=== PATIENT | female | born 1980 | race Two or more races ===

== ENCOUNTER 2023-06-30 11:26 | Inpatient (IN) | payer MEDICAID, OTHER ==
[~2023-06-30] VITALS: Ht 160 cm; Wt 93.5 kg
[2023-06-30 12:36] LABS: Urine Bacteria MANY /hpf (None Seen); Urine Blood Negative /uL (Negative); Urine Clarity HAZY (Clear); Urine Color Yellow (Yellow); Urine Hyaline Cast FEW /lpf (0 - 2); Urine Protein, UAD TRACE (Negative); Urine Urobilinogen Normal (Negative); Urine WBC 26 /hpf (0 - 5); Urine pH 6.5 (5.0-8.0)
[2023-06-30 12:53] LABS: Basophils # (auto) 0 10 ^3/uL (0-0.2); Basophils % (auto) 0.3 % (0.0-2.0); Eosinophils # (auto) 0.1 10 ^3/uL (0-0.8); Eosinophils % (auto) 1.1 % (0.0-7.0); Hematocrit 43.2 % (36.0-46.0); Lymphocytes # (auto) 2.7 10 ^3/uL (0.4-5.4); Lymphocytes % (auto) 35.7 % (10.0-50.0); Mean Corpuscular Hemoglobin 28.2 pg (28.0-32.0); Mean Corpuscular Hgb Conc. 32.5 g/dL (32.0-36.0); Monocytes # (auto) 0.5 10 ^3/uL (0-1.3); Monocytes % (auto) 7.2 % (0.0-12.0); Neutrophils # (auto) 4.2 10 ^3/uL (1.6-8.6); Neutrophils % (auto) 55.7 % (37.0-80.0); Red Blood Cells 4.97 10^6/uL (4.0-5.20); Red Cell Distribution Width 13.9 % (11.8-14.3); White Blood Cell 7.5 10^3/uL (4.4-10.8)
[2023-06-30 13:07] LABS: Alanine Aminotransferase 75 U/L (7-40); Albumin 4.2 g/dL (3.2-4.8); Alkaline Phosphatase 98 U/L (46-116); Anion Gap 4 (5-15); Aspartate Aminotransferase 45 U/L (13-40); Bilirubin, Total 0.4 mg/dL (0.2-1.0); Carbon Dioxide 27 mmol/L (20-30); Chloride 106 mmol/L (98-107); Glucose 142 mg/dL (74-106); Lipase 30 U/L (12-53); Potassium 3.9 mmol/L (3.5-5.1); Sodium 137 mmol/L (136-145); Total Protein 7.1 g/dL (5.7-8.2)
[2023-06-30 13:15] LABS: BUN/Creatinine Ratio 8.2 (10.0-20.0); Blood Urea Nitrogen < 5 mg/dL (9-23)
[2023-06-30] MEDS: SODIUM CHLORIDE 0.9% 1,000 ML IV ONE (14:08)
[2023-06-30] MEDS: KETOROLAC TROMETH 30 MG/ML 1ML VIAL IV ONE (14:10)
[2023-06-30] MEDS: cefTRIAXone 1GM/50ML D5W 50 ML IV ONE (15:10)
[2023-06-30] MEDS: SODIUM CHLORIDE 0.9% 1,000 ML IV SCH (16:15)
[2023-06-30] MEDS ORDERED: MORPHINE SULFATE INJ 2 MG/ml SYRG IV PRN (16:15)
[2023-06-30] MEDS ORDERED: ONDANSETRON HCL 4 MG/2 ML VIAL IV PRN (16:15)
[2023-06-30] MEDS ORDERED: DOCUSATE SOD 100 MG CAP PO PRN (16:15)
[2023-06-30] MEDS: LORazepam 2MG/ML-1ML VIAL IV ONE (18:08)
[2023-06-30 19:23] VITALS: BP 116/73; PULSE 69; RESP 16; TEMP 96.3
[2023-06-30 20:00] VITALS: BP 119/57; PULSE 72; PULSE 79; RESP 16; TEMP 97.6; O2SAT 95
[2023-06-30] MEDS: metroNIDAZOLE 500MG/100ML 100 ML IV SCH (21:43)
[2023-06-30 22:00] VITALS: BP 105/68; PULSE 65; RESP 16; TEMP 98; O2SAT 96
[2023-07-01] VITALS (7 sets, daily range): BP systolic 103–114; BP diastolic 57–66; PULSE 61–82; RESP 14–16; TEMP 36.7; O2SAT 97–98
[2023-07-01 05:56] LABS: Basophils # (auto) 0 10 ^3/uL (0-0.2); Basophils % (auto) 0.3 % (0.0-2.0); Eosinophils # (auto) 0.1 10 ^3/uL (0-0.8); Eosinophils % (auto) 1.7 % (0.0-7.0); Hematocrit 39.8 % (36.0-46.0); Hemoglobin 13.4 g/dL (12.2-16.2); Lymphocytes # (auto) 2.7 10 ^3/uL (0.4-5.4); Mean Corpuscular Hemoglobin 28.8 pg (28.0-32.0); Mean Corpuscular Hgb Conc. 33.7 g/dL (32.0-36.0); Mean Corpuscular Volume 85.4 fL (80.0-100.0); Monocytes # (auto) 0.6 10 ^3/uL (0-1.3); Monocytes % (auto) 8.4 % (0.0-12.0); Neutrophils # (auto) 3.7 10 ^3/uL (1.6-8.6); Neutrophils % (auto) 51.6 % (37.0-80.0); Red Blood Cells 4.66 10^6/uL (4.0-5.20); Red Cell Distribution Width 13.9 % (11.8-14.3); White Blood Cell 7.1 10^3/uL (4.4-10.8)
[2023-07-01 06:14] LABS: Alanine Aminotransferase 78 U/L (7-40); Albumin 3.9 g/dL (3.2-4.8); Alkaline Phosphatase 86 U/L (46-116); Anion Gap 6 (5-15); Aspartate Aminotransferase 52 U/L (13-40); BUN/Creatinine Ratio 10.7 (10.0-20.0); Bilirubin, Total 0.5 mg/dL (0.2-1.0); Blood Urea Nitrogen 6 mg/dL (9-23); Calcium 8.7 mg/dL (8.7-10.4); Carbon Dioxide 25 mmol/L (20-30); Chloride 108 mmol/L (98-107); Glucose 103 mg/dL (74-106); Sodium 139 mmol/L (136-145); Total Protein 6.5 g/dL (5.7-8.2)
[2023-07-01] MEDS: levoFLOXacin 500MG 100 ML IV SCH (08:51)
[2023-07-01] MEDS ORDERED: HYDROcodone-ACET 5/325MG TAB PO PRN (15:45)
[2023-07-02 05:00] VITALS: BP 94/56; PULSE 57; RESP 16; TEMP 98.5; O2SAT 96
[2023-07-02 09:00] VITALS: BP 103/60; PULSE 65; RESP 20; TEMP 98.6; O2SAT 98
[2023-07-02 13:00] VITALS: BP 135/85; PULSE 59; RESP 20; TEMP 98.6; O2SAT 98
[2023-07-02 17:00] VITALS: BP 104/57; PULSE 57; RESP 18; TEMP 98.2; O2SAT 94
[2023-07-02 20:00] VITALS: BP 119/57; PULSE 60; PULSE 85; RESP 16; RESP 17; TEMP 97.6; O2SAT 96
[2023-07-03 08:53] VITALS: BP 91/52; PULSE 52; RESP 15; TEMP 98.9; O2SAT 100
[2023-07-03] MEDS ORDERED: NITR-52 PO (09:07)
[2023-07-03] MEDS ORDERED: METR-344 PO (09:07)
[2023-07-03 09:26] LABS: Hepatitis B Core Total AB Negative (Negative)
[2023-07-03] MEDS: cefTRIAXone 1GM/50ML D5W 50 ML IV SCH (10:25)
[2023-07-03 11:43] LABS: Hepatitis A Total Antibody Positive (Negative); Hepatitis B Surface Antibody Negative (Negative); Hepatitis B Surface Antigen Negative (Negative); Hepatitis C Antibody Negative (Negative)
[2023-07-03 12:52] VITALS: BP 106/65; PULSE 68; RESP 16; TEMP 97.8; O2SAT 96
== END 2023-07-03 13:30 | disposition home or self-care (01) | DRG 463 ==
LOC: ER 11:26 → OVERFLOW 16:17 → CENTRAL 18:52
PROVIDERS: ADMIT Nurse Practitioner Family; ATTEND Family Medicine
DX: N10 Acute pyelonephritis (principal); K83.8 Other specified diseases of biliary tract; K76.0 Fatty (change of) liver, not elsewhere classified; R73.03 Prediabetes; E86.0 Dehydration; E78.5 Hyperlipidemia, unspecified; Z16.23 Resistance to quinolones and fluoroquinolones; R74.01 Elevation of levels of liver transaminase levels; B96.20 Unspecified Escherichia coli [E. coli] as the cause of diseases classified elsewhere; Z88.0 Allergy status to penicillin
CPT/HCPCS: 36415; 72100; 74181; 76705; 80053; 81001; 81025; 82728; 83690; 85025; 86038; 86704; 86706; 86708; 86803; 87040; 87086; 87088; 87186; 87340; 96361; 96365; 96375; G0378; J1885; J1956; J3490

== ENCOUNTER 2023-10-12 21:43 | Emergency (ER) | payer MEDICAID ==
[~2023-10-12] VITALS: Ht 160 cm; Wt 93.0 kg
[~2023-10-12 21:43] MED LIST: METR-344 PO; NITR-52 PO
[2023-10-13] MEDS: IBUPROFEN 600 MG TAB PO ONE (00:58)
[2023-10-13] MEDS ORDERED: IBUP-1455 PO (01:15)
[2023-10-13 03:06] VITALS: BP 100/59; PULSE 55; RESP 16; TEMP 98.3; O2SAT 98
== END 2023-10-13 03:22 | disposition home or self-care (01) ==
LOC: ER 21:43
DX: S93.402A Sprain of unspecified ligament of left ankle, initial encounter (principal); E78.5 Hyperlipidemia, unspecified; Z88.8 Allergy status to other drugs, medicaments and biological substances; Z79.899 Other long term (current) drug therapy; W18.39XA Other fall on same level, initial encounter; Y93.01 Activity, walking, marching and hiking; Y92.480 Sidewalk as the place of occurrence of the external cause; Y99.8 Other external cause status
CPT/HCPCS: 29515; 73610